=== PATIENT | female | born 1955 | race Caucasian/White ===

== ENCOUNTER → 2017-01-25 | Outpatient (CLI) | payer MEDICAID ==
[~2017-01-25] MED LIST: ALPARAZOLAM0.5 MG PO; AMOXICOT500 MG PO; LEVOTHYROXINE0.05 M3 NG; LISINOPRIL 10MG10 MG PO; PAXIL20 M1 PO
== END ==
LOC: LAB 11:32
DX: D49.7 Neoplasm of unspecified behavior of endocrine glands and other parts of nervous system (principal)